=== PATIENT | male | born 1985 | race Caucasian/White ===

== ENCOUNTER 2025-01-31 11:05 | Day surgery (SDC) | payer OTHER, SELFPAY ==
[2025-01-31] VITALS (13 sets, daily range): BP systolic 125–144; BP diastolic 74–88; PULSE 57–78; TEMP 36.2–36.7; O2SAT 92–99; BMI 36.0
[2025-01-31 11:58] LABS: Glucometer 146 mg/dL (74-106)
[2025-01-31] MEDS: LACTATED RINGER'S SOLUTION 1,000 ML 50 ML IV (12:42)
[2025-01-31] MEDS: CEFAZOLIN SODIUM 2 GM/50 ML D5W PREMIX IV (14:08)
[2025-01-31] MEDS: IOHEXOL 240 MG/ML - 10 ML VIAL 120 MG INJ (15:04)
--- NOTE | 2025-01-31 15:33 | P.URON_ITS ---
Urology Surgery Operative Note Operative Note Procedure Date: 01/31/25 Time Out Performed: yes Pre-op Diagnosis: Obstructing left ureteral calculi Post-op Diagnosis: same as pre-op Procedures performed: 1. Cystoscopy. 2. Left rigid ureteral dilation. 3. Left retrograde pyelogram. 4. Left ureteroscopy. 5. Thulium laser lithotripsy of a large left ureteral stone burden #6. Left ureteral calculus fragment basket extraction. 7. Placement of 6 [place] variable length left ureteral stent Anesthesia: LUIS Primary Surgeon: Deshawn Duenas Complications: None Estimated blood loss (mL): 5 Findings: Large obstructing bright yellow stone burden at the S1 region Specimens: Left ureteral calculi fragments Drains: Drains 6 [place] variable length left ureteral stent Indications for Procedures: This gentleman has a 13 mm and a 5 mm left mid ureteral calculi causing obstruction and pain. He now presents for definitive ureteroscopic stone man ipulation and left stent placement. He has signed an informed consent after risks were explained. Detailed description of Procedure: The patient was brought to the operating room and placed on the operating room table in the supine position. SCDs were placed on the lower extremities and turned on and functioning during the entire case. Timeout was done by all parties in the room. We all agreed upon the patient's identification and the planned procedures for this patient. Genn. anesthesia was then administered. The patient was then repositioned into the modified dorsal lithotomy position. All pressure points were satisfactorily padded. Genitalia were sterilely prepped and draped in usual fashion. I started by passing a 22 [place] Olympus cystoscope per urethra and into the bladder. The anterior urethra was normal. The prostatic urethra revealed bilobar hypertrophy. Panendoscopy in the bladder revealed chronic inflammatory debris and blood clots at the base of the bladder. No tumors or stones were noted. I then passed a open-ended ureteral catheter through the scope and into the left ureter. I then did a retrograde pyelogram. This showed a large filling defect at the S1-L5 region representing the stones. I then passed a Glidewire through the scope and up the ureter into the kidney. I then used a 10 [place] rigid dilator to dilate the distal ureter. The scope and dilator were removed. I then passed a semirigid ureteroscope adjacent to the wire into the bladder and into the left ureter. I ascended up the ureter until I arrived at this large bright yellow stone burden at the S1 region. I then used a 272 Angstrom laser fiber through the scope and made contact with the stone. The thulium laser was set at 7 W on the dusting mode. I then began dusting this large stone burden. Some of it was impacted into the wall of the ureter. I was able to get it down to multiple pieces. I then used a 0 tip nitinol basket and engaged many pieces and brought them down and dumped them in the base of the bladder. I went up and down the ureter clearing out fragments numerous times until the left ureter was free of all stone. The ureteroscope was then removed. I then backloaded the cystoscope over the wire and passed it into the bladder. I then slid a 6 [place] variable length ureteral stent over the wire up the urete r and into the kidney. The wire was removed and there were good curls in the kidney and in the bladder. The Ilich evacuator was then used to get all of the stone pieces out from the base of the bladder. These were sent for stone analysis with the presumptive diagnosis of uric acid. The bladder was then drained of its contents and the scope was then removed. He was then transferred to a [facility] bed and wheeled to PACU in stable condition. He will be discharged to home later today with a prescription for Keflex and Vesicare.
[2025-01-31] MEDS: SOLIFENACIN SUCCINATE 10 MG TABLET PO (15:52)
[2025-01-31 16:09] LABS: Glucometer 164 mg/dL (74-106)
== END 2025-01-31 16:51 | disposition home or self-care (01) ==
PROVIDERS: PCP Nurse Practitioner Family; Visit Provider Urology
PROC: (CPT 918; principal; 2025-01-31 12:30)
DX: N13.2 Hydronephrosis with renal and ureteral calculous obstruction (principal); E11.9 Type 2 diabetes mellitus without complications; E78.00 Pure hypercholesterolemia, unspecified; F17.200 Nicotine dependence, unspecified, uncomplicated; R31.0 Gross hematuria
CPT/HCPCS: 52356; 36415; 74420; 82365; 82948; 99999; J0690; Q9966

== ENCOUNTER 2025-03-04 21:36 | Emergency (ER) | payer OTHER, SELFPAY ==
[2025-03-04 21:42] VITALS: BP 136/81; PULSE 72; TEMP 36.9; O2SAT 97; BMI 36.3
--- NOTE | 2025-03-04 21:56 | XR_ITS ---
The [address] [address] Patient Name: BETTE LEE MRN: [id number] date: 1985 Sex: M Assigned Patient Location: ED.MAIN Current Patient Location: ED.MAIN Accession/Order Number: [id number] Exam Date: 03/04/2025 22:28 Report Date: 03/04/2025 22:34 At the request of: LIZZIE PHELPS DO Procedure: XR shoulder LT min 2V LEFT SHOULDER - - 3 CLINICAL HISTORY: pain COMPARISON: None FINDINGS: No fracture dislocation. Minimal spurring involving the AC joint. Joint spaces are otherwise preserved. Soft tissues unremarkable. XR/XR shoulder LT min 2V IMPRESSION: No acute bony process. Impression dictated by: Damian Amaral M.D. 03/04/2025 10:34 PM Dictation Location: [place] [address] Electronically authenticated by: [id number] Y Date: 03/04/2025 22:34
[2025-03-04 21:57] VITALS: O2SAT 97
--- NOTE | 2025-03-04 21:57 | ED_ITS ---
HPI - Extremity Problem General Chief complaint: Extremity Problem, Nontraumatic Stated complaint: PAIN IN L SHOULDER Time Seen by Provider: 03/04/25 21:43 Source: patient Mode of arrival: walk-in History of Present Illness HPI Narrative: The patient is a xpjnd-tuqg-rojurtch male who presents to the emergency department with a 1 day history of left shoulder pain. Patient states that last evening while he was sleeping he felt a pop in his shoulder. Since then he has had pain with AB ducting, flexion and extension of the shoulder. He has no pain with internal or external rotation. He states he cannot reach his arms over his head. He did not take anything for the pain which he describes as moderate and achy like in sensation. It radiates from his deltoid down into his bicep and tricep. He does not have any neck pain or stiffness. Patient's never had any pain like this before. He has never had a history of any dislocated or subluxed left shoulder. He states he tried to tough it out at work and was unable to do so to come to the ER. Related Data Home Medications ?Medication ?Instructions ?Recorded ?Confirmed tamsulosin 0.4 mg capsule (Flomax) 0.4 mg PO DAILY 01/2001/31/25 glipizide 5 mg tablet 5 mg PO DAILY 03/04/2503/04 Previous Rx's ?Medication ?Instructions ?Recorded cephalexin 500 mg capsule 500 mg PO BID 5 days #10 cap s 01/31/25 solifenacin 10 mg tablet (Vesicare) 10 mg PO DAILY #14 tabs 01/31/25 cyclobenzaprine 10 mg tablet 10 mg PO BID PRN muscle s pasm #10 03/04/25 tabs Allergies Allergy/AdvReac Type Severity Reaction Status Date / Time No Known Drug Allergies Allergy Verified 03/04/25 21:41 Review of Systems ROS Narrative 10 Systems were reviewed, and unless not ed in the HPI, all other systems are reviewed, unremarkable, or noncontributory. [facility] Medical History Hydronephrosis ?N13.30 - Unspecified hydronephrosis (ICD-10) Ureteral stone ?N20.1 - Calculus of ureter (ICD-10) Smoker ?F17.200 - Nicotine dependence, unspecified, uncomplicated (ICD-10) Kidney stones ?N20.0 - Calculus of kidney (ICD-10) Hypercalciuria ?R82.994 - Hypercalciuria (ICD-10) Left flank pain ?R10.9 - Unspecified abdominal pain (ICD-10) Diabetes ?E11.9 - Type 2 diabetes mellitus without complications (ICD-10) Surgical History H/O cystoscopy ?Z98.890 - Other specified postprocedural states (ICD-10) Family History Other Family history of CHF (congestive heart failure) Family history of COPD (chronic obstructive pulmonary disease) Family history of cancer Family history of diabetes mellitus Family history of myocardial infarction Social History Within the past year, how often did you have a drink containing alcohol: monthly or less Within the past year, how often did you have six or more drinks on one occasion: never Second hand tobacco smoke exposure: Yes Non-prescribed substance use: cannabis (any form) Non-prescribed substance use details: vaping, smokes and chewable THC Previous occupational history: [email or web address] Known occupational exposures/hazards: No Highest level of school completed/degree received: 11th grade Little interest or pleasure in doing things: not at all Feeling down, depressed, or hopeless: not at all Exam Narrative Exam Narrative: Prior to examining the patient, I have washed with hospital approved and provided Antiseptic [employer] and have also applied gloves.? Prior to touching the patient, I asked for consent to examine the patient.? General: Alert and oriented, well nourished, mild distress. Eye: PERRL, EOMI, normal conjunctiva. HENT: Normocephalic, normal hearing, moist oral mucosa, no scleral icterus Lungs: Clear to auscultation and percussion, non-labored respiration. Heart: Normal rate, regular rhythm, no murmur, gallop or edema. Musculoskeletal: No swelling or deformity. The decreased range of motion secon gavino to pain in flexion, extension, and abduction. The patient does not have pain with internal and external rotation. Skin: Skin is warm, dry and pink, no rashes or lesions. Neurologic: Awake, alert, and oriented X3, CN II-XII intact. Psychiatric: Cooperative, appropriate mood and affect.? Following the conclusion of the examination, I have washed my hands thoroughly after removing examination gloves. Constitutional Vital Signs, click to edit/add: Last Vital Signs Temp 98.5 F 03/04/25 21:42 Pulse 72 03/04/25 21:42 Resp 16 03/04/25 21:42 BP 136/81 03/04/25 21:42 Pulse Ox 97 03/04/25 21:57 O2 Del Method Room Air 03/04/25 21:57 Course Course Hospital Course: In summary the patient is a 39-year-old male that is zcasy-oicp-zizcifsi who has pain in his left shoulder. He is having pain with any type of manipulation of the left shoulder. However, with internal and external rotation there is no pain. So the joint is approximated. In addition, the pain is not out of proportion to physical exam and therefore I do not think that the patient has a septic joint. Patient is going to have x-ray to confirm that there is no subluxation present in 2 check the integrity of the joint. Otherwise the patient is aware that he may have to follow-up with orthopedic surgery for an MRI which has to be done as an outpatient because we do not do those in the emergency department. Patient also has not taken anything for pain so we gave the patient orphenadrine 60 mg IM and Toradol 15 mg IM. Reevaluation(s) Reevaluation #1: X-ray was interpreted by me and found to be negative. I went discussed these results with the patient. Time: 22:24 Vital Signs Vital signs: Vital Signs Temperature 98.5 F 03/04/25 21:42 Pulse Rate 72 03/04/25 21:42 Respiratory Rate 16 03/04/25 21:42 Blood Pressure 136/81 03/04/25 21:42 Pulse Oximetry 97 03/04/25 21:42 Oxygen Delivery Method Room Air 03/04/25 21:42 Temperature 98.5 F 03/04/25 21:42 Pulse Rate 72 03/04/25 21:42 Respiratory Rate 16 03/04/25 21:42 Blood Pressure 136/81 07/07/25 21:42 Pulse Oximetry 97 03/04/25 21:57 Oxygen Delivery Method Room Air 03/04/25 21:57 MDM - Extremity (Nontraumatic) MDM Narrative Medical decision making narrative: Patient is a 39-year-old male who has nontraumatic left shoulder pain but awoke with a pop in his shoulder spontaneously. Since then he is had a lot of pain. Patient was given analgesic medication with Toradol and Norflex while he was here. Patient can take Tylenol and Motrin at home for analgesic management. Will write him for some Flexeril. The patient will need to follow-up with his primary care physician for an orthopedic referral for possible physical therapy, Occupational Therapy, or an MRI. The patient at this time appears nontoxic and in no acute distress. No need for emergent transfer for this condition. Aries mora is neurovascularly intact with unremarkable x-ray. Differential Diagnosis Differential diagnosis: Likely other (Dislocation, subluxation, septic joint, rotator cuff tear, labrum tear) Medical Records Attestation: I reviewed the patient's medical records. Imaging Data Left shoulder x-ray: Attestation: I personally reviewed and interpreted this imaging study as follows: My impression: 2 view left shoulder x-ray reveals no evidence of fracture, dislocation, or subluxation. Radiologist's impression: ITS Impressions Shoulder X-Ray 03/04/25 21:56 IMPRESSION: No acute bony process. Impression dictated by: Damian Amaral M.D. 03/04/2025 10:34 PM Dictation Location: [place] [address] Electronically authenticated by: [id number] Y Date: 03/04/2025 22:34 Discharge Plan Discharge Chief Complaint: Extremity Problem, Nontraumatic Clinical Impression: Strain of left shoulder Patient Disposition: Home, Self-Care Time of Disposition Decision: 22:26 Condition: Good Mode of Transportation: Private Vehicle Prescriptions / Home Meds: New cyclobenzaprine 10 mg tablet 10 mg PO BID PRN (Reason: muscle spasm) Qty: 10 0RF No Action glipizide 5 mg tablet 5 mg PO DAILY tamsulosin [Flomax] 0.4 mg capsule 0.4 mg PO DAILY cephalexin 500 mg capsule 500 mg PO BID 5 Days Qty: 10 0RF solifenacin [Vesicare] 10 mg tablet 10 mg PO DAILY Qty: 14 0RF Print Language: Yakut Referrals: Liza Lozano NP [Primary Care Provider] - 1 week Discharge Date/Time: 03/04/25 22:39
--- NOTE | 2025-03-04 22:01 | PC.NURSE ---
pt ambulatory to imaging at this time with Computer Aided [employer].
[2025-03-04] MEDS: KETOROLAC TROMETHAMINE 30 MG/ML VIAL 15 MG IM (22:17)
[2025-03-04] MEDS: ORPHENADRINE 60 MG/2 ML VIAL IM (22:30)
== END 2025-03-04 22:39 | disposition home or self-care (01) ==
PROVIDERS: Emergency Provider Emergency Medicine; PCP Nurse Practitioner Family
DX: S46.912A Strain of unspecified muscle, fascia and tendon at shoulder and upper arm level, left arm, initial encounter (principal); X58.XXXA Exposure to other specified factors, initial encounter; F17.290 Nicotine dependence, other tobacco product, uncomplicated
CPT/HCPCS: 73030; 96372; 99284; J1885; J2360